=== PATIENT | female | born 1980 | race Hispanic/Latino ===

== ENCOUNTER 2017-03-26 19:23 | Emergency (ER) | payer SELFPAY ==
[~2017-03-26 19:23] MED LIST: ISOVUE-370 76%-LOCM 1 ML ONE
[2017-03-26 20:02] LABS: #Eosinphils 0.1 thou/uL (0.0-0.7); #Lymphocytes 1.1 thou/uL (1.20-3.40); #Monocytes 0.7 thou/uL (0.11-0.59); #Neutrophils 10.6 thou/uL (1.40-6.50); %Basophils 0.3 % (0.0-1.0); %Eosinophils 0.4 % (0.0-10.0); %Lymphocytes 9.1 % (21.0-51.0); %Monocytes 5.5 % (0.0-10.0); %Neutrophils 84.7 % (42.0-75.0); Hemoglobin 14.4 g/dL (12.0-16.0); Mean Corpuscular HGB CONC 33.8 g/dL (32.0-36.0); Mean Corpuscular Hemoglobin 31.2 pg (27.0-31.0); Mean Corpuscular Volume 92.2 fl (81.0-99.0); Mean Platelet Volume 7.2 fL (7.4-10.4); Platelet Count 231 thou/uL (130-400); RBC Distribution Width 11.3 % (11.5-14.5); Red Blood Cell (RBC) Count 4.63 mill/uL (4.20-5.40); White Blood Cell (WBC) Count 12.5 thou/uL (4.8-10.8)
[2017-03-26 20:29] LABS: ALT (SGPT) 22 U/L (8-55); AST (SGOT) 22 U/L (5-34); Albumin 4.8 g/dL (3.5-5.0); Alkaline Phosphatase 73 U/L (40-150); Anion Gap 13 mmol/L (10-20); BUN (Urea Nitrogen) 11 mg/dL (7.0-18.7); Bilirubin, Total 0.5 mg/dL (0.2-1.2); Calc. Creatinine Clearance 0 mL/min (70-130); Calcium 9.7 mg/dL (7.8-10.44); Carbon Dioxide 23 mmol/L (22-29); Chloride 105 mmol/L (98-107); Estimated GFR-MDRD 88; Glucose 117 mg/dL (70-105); Potassium 3.4 mmol/L (3.5-5.1); Protein, Total 7.8 g/dL (6.0-8.3); Sodium 138 mmol/L (136-145)
[2017-03-26 20:32] LABS: CKMB 0.7 ng/mL (0-6.6); Troponin I Less than 0.010 ng/mL (< 0.028)
[2017-03-26 22:08] LABS: Bilirubin Negative (Negative); Blood, Urine Moderate (Negative); Clarity CLEAR (Clear); Glucose, Urine (Dipstick) Negative (Negative); Leukocyte Negative (Negative); Nitrite Negative (Negative); Protein, Urine (Dipstick) Negative (Neg-Trace); Specific Gravity, Urine 1.013 (1.002-1.036); Urobilinogen 0.2 mg/dL (0.2-1.0)
[2017-03-26 22:09] LABS: Pregnancy Test - Urine (BHCG) Negative (Negative); Pregu Control Background? CLEAR/WHITE (CLR/WHITE); Pregu Control Bar Appear? YES (CONTROL BAR); Specific Gravity 1.013 (1.002-1.036)
[2017-03-26 22:10] LABS: Bacteria/HPF None Seen HPF (None Seen); Hyaline Casts/LPF 0-3 HYALINE CAST LPF (0-3 Hyaline); Squamous Epithelial 0-3 HPF (0-3); WBC/HPF 0-3 HPF (0-3)
--- NOTE | 2017-03-26 22:19 | ULT ---
GALLBLADDER ULTRASOUND: 03/26/17 No prior comparison. INDICATION: Right upper quadrant pain. FINDINGS: There is heterogeneous echotexture of the liver and there are portions of the liver that are incomple tely imaged due to persistent areas of shadowing which limits acoustic penetration. The common duct i s normal measuring 3 mm. Gallbladder wall is normal between 1 and 2 mm in thickness. There are a few low level echoes of the doppler lumen which could be on the basis of reverberation artifact or sludge . No pericholecystic edema. There is no ascites of significance visualized within the right upper andrés drant. IMPRESSION: Low level echoes of the gallbladder which are equivocal, as discussed above. Otherwise there is no de finite acute process. POS: [facility]
--- NOTE | 2017-03-26 22:31 | RAD ---
TWO VIEW CHEST: 03/26/17 HISTORY: Chest pain. Lungs are clear. Heart and mediastinum unremarkable. IMPRESSION: No acute finding. POS: [facility]
--- NOTE | 2017-03-26 23:45 | CT ---
CT ABDOMEN AND PELVIS WITH CONTRAST: 03/26/17 Multiple axial tomograms obtained through the abdomen and pelvis with IV enhancement. HISTORY: Right upper quadrant pain. The lungs bases are clear. The liver, spleen and pancreas are unremarkable. Kidneys are unremarkable. No hydronephrosis. Bowel l oops unremarkable. Appendix appears normal. Stool throughout the colon. Colonic mucosal lesions are n ot excluded. The uterus is rather prominent but unremarkable. No adenopathy. Aorta unremarkable. IMPRESSION: No acute intra-abdominal process identified. POS: [facility]
== END 2017-03-27 00:29 | disposition home or self-care (01) ==
LOC: ERS 19:23 → EDBD 19:23 → ERS 03-27 00:29
DX: R10.11 Right upper quadrant pain (principal); K21.9 Gastro-esophageal reflux disease without esophagitis
CPT/HCPCS: 36415; 71046; 74177; 76705; 80053; 81003; 81015; 81025; 82553; 83690; 84484; 85025; 85379; 93005

== ENCOUNTER 2022-06-17 09:26 | Outpatient (CLI) | payer OTHER | END 2022-06-17 09:27 | disposition home or self-care (01) | LOC: NM 09:26 | PROVIDERS: ATTEND Internal Medicine Gastroenterology | DX: R10.9 Unspecified abdominal pain (principal) | CPT/HCPCS: 78227; A9537 ==